=== PATIENT | female | born 1970 | race Caucasian/White ===

== ENCOUNTER 2016-04-06 07:59 | Emergency (ER) | payer BC ==
[~2016-04-06] VITALS: Ht 172.7 cm; Wt 99.9 kg
[~2016-04-06 07:59] MED LIST: ABILIFY10 MG PO; ADDERALL20 MG PO; ASPIR-LOW81 MG PO; CHANTIX1 MG PO; DAILY VITE1 EAC1 PO; DIFLUCAN100 MG PO; EFFEXOR XR150 MG PO; EFFEXOR XR75 MG PO; FEOSOL325 MG PO; LAMICTAL100 MG PO; MIRALAX255 GM PO; ONE DAILY MULT1 EACH PO; PANTOPRAZOLE SO40 MG PO; PROBIOTIC & AC1 EACH PO; PROTONIX40 MG PO; TOPAMAX50 MG PO; VITAMIN D2000 UNIT PO; VYVANSE30 MG PO; VYVANSE70 MG PO; WELLBUTRIN; WELLBUTRIN XL150 MG PO; [UNRECOGNIZED DRUG - REMARK]
[2016-04-06 08:41] LABS: ADD MIUA? YES; BILIRUBIN NEGATIVE; BLOOD MODERATE; COLOR YELLOW ((YELLOW)); GLUCOSE (STRIP) NEGATIVE; KETONES NEGATIVE; LEUKOCYTES NEGATIVE; NITRITE NEGATIVE; PH, URINE 7.5 (5-8); PROTEIN (STRIP) TRACE; SPECIFIC GRAVITY 1.019 (1.000-1.030); UROBILINOGEN 0.2 MG/DL (0.2-1.0)
[2016-04-06 08:44] LABS: BASOPHIL COUNT 0.1 K/uL (0-0.1); EOSINOPHIL (%) 2.7 % (0-5); EOSINOPHIL COUNT 0.2 K/uL (0-0.3); HEMATOCRIT 41.7 % (36.0-46.0); MCH 30.4 PG (29.0-34.0); MCHC 34.3 G/DL (30.0-36.0); MCV 88.5 FL (83-99); MEAN PLAT.VOLUME 9.2 uM^3 (9.5-12.4); MONOCYTE (%) 7.3 % (3-12); MONOCYTE COUNT 0.5 K/uL (0-0.8); PLATELET COUNT 293 K/uL (156-360); RBC DIS.WIDTH-CV 12.7 % (11.8-14.6); RED BLOOD COUNT 4.71 M/uL (3.80-5.20); WHITE BLOOD COUNT 6.7 K/uL (4.1-10.2)
[2016-04-06 08:52] LABS: CHLORIDE 106 mEq/L (99-109); POTASSIUM 4.5 mEq/L (3.7-5.4); SODIUM 137 mEq/L (136-147)
[2016-04-06 08:53] LABS: BACTERIA NONE SEEN; CASTS NONE SEEN /LPF; CRYSTALS NONE SEEN; EPITHELIAL CELLS RARE; MUCUS NONE SEEN; PATHOLOGICAL CAST NONE SEEN; RED BLOOD CELLS 40-50 /HPF (0-5); SMALL ROUND CELL NONE SEEN; UCUL ADDED? NO; WHITE BLOOD CELLS 0-5 /HPF (0-5); YEAST-LIKE CELL NONE SEEN
[2016-04-06 08:54] LABS: GLUCOSE 97 mg/dL (70-99)
[2016-04-06 08:55] LABS: ANION GAP 8 MEQ/L (2-14)
[2016-04-06 08:57] LABS: GFR ESTIMATE (CALCULATED) > 59 mL/min/
[2016-04-06 08:58] LABS: UREA NITROGEN (BUN) 17 mg/dL (9-23)
[2016-04-06] MEDS ORDERED: MOTRIN600 MG PO (09:47)
[2016-04-06] MEDS ORDERED: PERCOCET 5/31 TABLET PO (09:47)
[2016-04-06 10:28] VITALS: BP 115/74
== END 2016-04-06 10:44 | disposition home or self-care (01) ==
LOC: EME 07:59
PROVIDERS: Emergency Medicine
DX: N13.2 Hydronephrosis with renal and ureteral calculous obstruction (principal); Z87.891 Personal history of nicotine dependence
CPT/HCPCS: 74176; 80048; 81003; 85025; 99281; 99285; J1885; J3010; J7030

== ENCOUNTER 2016-04-16 10:26 | Emergency (ER) | payer BC ==
[~2016-04-16] VITALS: Ht 172.7 cm; Wt 102.0 kg
[~2016-04-16 10:26] MED LIST changes: +MOTRIN600 MG PO; +PERCOCET 5/31 TABLET PO
[2016-04-16 12:47] LABS: ADD MIUA? YES; BILIRUBIN NEGATIVE; BLOOD SMALL; COLOR YELLOW ((YELLOW)); GLUCOSE (STRIP) NEGATIVE; KETONES NEGATIVE; LEUKOCYTES NEGATIVE; NITRITE NEGATIVE; PROTEIN (STRIP) NEGATIVE; SPECIFIC GRAVITY 1.017 (1.000-1.030); UROBILINOGEN 0.2 MG/DL (0.2-1.0)
[2016-04-16 13:02] LABS: HEMATOCRIT 41.7 % (36.0-46.0); MCH 30.1 PG (29.0-34.0); MCHC 34.1 G/DL (30.0-36.0); MCV 88.3 FL (83-99); MEAN PLAT.VOLUME 9.4 uM^3 (9.5-12.4); PLATELET COUNT 279 K/uL (156-360); RBC DIS.WIDTH-CV 12.9 % (11.8-14.6); RBC DIS.WIDTH-SD 40.6 % (39-53); RED BLOOD COUNT 4.72 M/uL (3.80-5.20); WHITE BLOOD COUNT 7.2 K/uL (4.1-10.2)
[2016-04-16 13:11] LABS: CHLORIDE 106 mEq/L (99-109); POTASSIUM 4.1 mEq/L (3.7-5.4); SODIUM 138 mEq/L (136-147)
[2016-04-16 13:13] LABS: GLUCOSE 83 mg/dL (70-99)
[2016-04-16 13:15] LABS: ANION GAP 10 MEQ/L (2-14)
[2016-04-16 13:16] LABS: BACTERIA NONE SEEN; CASTS NONE SEEN /LPF; CRYSTALS NONE SEEN; EPITHELIAL CELLS RARE; MUCUS NONE SEEN; RED BLOOD CELLS NONE SEEN /HPF (0-5); UCUL ADDED? NO; WHITE BLOOD CELLS NONE SEEN /HPF (0-5)
[2016-04-16 13:17] LABS: GFR ESTIMATE (CALCULATED) > 59 mL/min/
[2016-04-16 13:18] LABS: UREA NITROGEN (BUN) 12 mg/dL (9-23)
[2016-04-16] MEDS ORDERED: NAPROSYN500 MG PO (13:45)
[2016-04-16] MEDS ORDERED: STOOL SOFTENER240 MG PO (13:48)
[2016-04-16 14:16] VITALS: BP 105/68
== END 2016-04-16 14:18 | disposition home or self-care (01) ==
LOC: EME 10:26
PROVIDERS: Nurse Practitioner Family
DX: R10.9 Unspecified abdominal pain (principal); R31.9 Hematuria, unspecified; Z98.890 Other specified postprocedural states; Z88.2 Allergy status to sulfonamides
CPT/HCPCS: 74000; 80048; 81003; 85027; 99281; 99284

== ENCOUNTER 2016-05-02 11:27 | Emergency (ER) | payer BC ==
[~2016-05-02] VITALS: Ht 172.7 cm; Wt 100.2 kg
[~2016-05-02 11:27] MED LIST changes: +NAPROSYN500 MG PO; +STOOL SOFTENER240 MG PO
[2016-05-02 12:02] LABS: EOSINOPHIL (%) 0.9 % (0-5); EOSINOPHIL COUNT 0.2 K/uL (0-0.3); HEMATOCRIT 42.4 % (36.0-46.0); IMMATURE GRANULOCYTE (%) 0.1 % (0.0-0.7); IMMATURE GRANULOCYTE COUNT 0.2 K/uL; LYMPHOCYTE COUNT 2.1 K/uL (1.0-2.8); MCV 88.3 FL (83-99); MEAN PLAT.VOLUME 9.1 uM^3 (9.5-12.4); MONOCYTE (%) 8.9 % (3-12); MONOCYTE COUNT 1.5 K/uL (0-0.8); NEUTROPHIL (%) 77.5 % (45-76); NEUTROPHIL COUNT 12.9 K/uL (1.8-6.4); PLATELET COUNT 317 K/uL (156-360); RBC DIS.WIDTH-CV 13.1 % (11.8-14.6); RBC DIS.WIDTH-SD 41.5 % (39-53); WHITE BLOOD COUNT 16.6 K/uL (4.1-10.2)
[2016-05-02 12:12] LABS: CHLORIDE 104 mEq/L (99-109); SODIUM 137 mEq/L (136-147)
[2016-05-02 12:13] LABS: GLUCOSE 110 mg/dL (70-99)
[2016-05-02 12:15] LABS: ANION GAP 8 MEQ/L (2-14)
[2016-05-02 12:17] LABS: GFR ESTIMATE (CALCULATED) > 59 mL/min/
[2016-05-02 12:18] LABS: UREA NITROGEN (BUN) 11 mg/dL (9-23)
[2016-05-02] MEDS ORDERED: FLAGYL500 MG PO (13:49)
[2016-05-02] MEDS ORDERED: CIPRO500 MG PO (13:49)
[2016-05-02 14:06] VITALS: BP 119/78
== END 2016-05-02 14:08 | disposition home or self-care (01) ==
LOC: EME 11:27
PROVIDERS: Physician Assistant
DX: K57.92 Diverticulitis of intestine, part unspecified, without perforation or abscess without bleeding (principal); Z88.2 Allergy status to sulfonamides
CPT/HCPCS: 74176; 80048; 81003; 85025; 99281; 99284; J1885

== ENCOUNTER 2016-07-11 22:52 | Inpatient (IN) | payer BC ==
[~2016-07-11] VITALS: Ht 172.7 cm; Wt 98.5 kg
[~2016-07-11 22:52] MED LIST changes: +CIPRO500 MG PO; +FLAGYL500 MG PO
[2016-07-11 23:36] LABS: HEMATOCRIT 43.4 % (36.0-46.0); MCH 29.5 PG (29.0-34.0); MCHC 32.9 G/DL (30.0-36.0); MCV 89.7 FL (83-99); PLATELET COUNT 322 K/uL (156-360); RBC DIS.WIDTH-CV 13.7 % (11.8-14.6); RBC DIS.WIDTH-SD 45.4 % (39-53); RED BLOOD COUNT 4.84 M/uL (3.80-5.20); WHITE BLOOD COUNT 11.7 K/uL (4.1-10.2)
[2016-07-11 23:47] LABS: CHLORIDE 112 mEq/L (99-109); POTASSIUM 4.3 mEq/L (3.7-5.4); SODIUM 141 mEq/L (136-147)
[2016-07-11 23:50] LABS: GLUCOSE 122 mg/dL (70-99)
[2016-07-11 23:51] LABS: ANION GAP 8 MEQ/L (2-14)
[2016-07-11 23:52] LABS: TOTAL BILIRUBIN 0.4 mg/dL (0.0-1.0)
[2016-07-11 23:53] LABS: ALKALINE PHOSPHATASE 85 IU/L (3-129); GFR ESTIMATE (CALCULATED) > 59 mL/min/
[2016-07-11 23:54] LABS: UREA NITROGEN (BUN) 10 mg/dL (9-23)
[2016-07-12] MEDS ORDERED: STOOL SOFTENER240 MG PO (01:12)
[2016-07-12] MEDS ORDERED: MIDRIN1 CAPSULE PO (01:13)
[2016-07-12] MEDS ORDERED: DAILY VALUE1 EACH PO (01:14)
[2016-07-12] MEDS ORDERED: MIRALAX255 GM PO (01:14)
[2016-07-12] MEDS ORDERED: CALCIUM 600 +1 EA16 PO (01:15)
[2016-07-12 02:00] VITALS: BP 130/65
[2016-07-12 07:33] VITALS: BP 118/75
[2016-07-12 16:03] VITALS: BP 122/60
[2016-07-12 22:40] VITALS: BP 107/61
[2016-07-13 07:35] VITALS: BP 132/74
== END 2016-07-13 12:20 | disposition home or self-care (01) | DRG 390 ==
LOC: EME → EDBD 22:52 → EME 22:52 → 5EAST 23:30 → EDOF 23:30 → 5EAST 07-12 01:48
PROVIDERS: Emergency Medicine
DX: K56.60 Unspecified intestinal obstruction (principal); K21.9 Gastro-esophageal reflux disease without esophagitis; F31.9 Bipolar disorder, unspecified; G43.909 Migraine, unspecified, not intractable, without status migrainosus; Z87.891 Personal history of nicotine dependence; Z88.2 Allergy status to sulfonamides
CPT/HCPCS: 71010; 74020; 74022; 80053; 83605; 85027; 94640; J1650; J2270; J2405; J7030; J7040

== ENCOUNTER 2016-12-26 22:56 | Observation (INO) | payer BC ==
[~2016-12-26] VITALS: Ht 172.7 cm; Wt 102.7 kg
[~2016-12-26 22:56] MED LIST changes: -ABILIFY10 MG PO; +ABILIFY20 MG PO; +CALCIUM 600 +1 EA16 PO; +DAILY VALUE1 EACH PO; +MIDRIN1 CAPSULE PO
[2016-12-26] MEDS ORDERED: DOXYCYCLINE MON50 MG PO (23:44)
[2016-12-26] MEDS ORDERED: PNEUMOVAX 230.5 ML IM (23:44)
[2016-12-26] MEDS ORDERED: TRULANCE3 MG PO (23:44)
[2016-12-26] MEDS ORDERED: FLUARIX QU60 MCG/0.4 IM (23:45)
[2016-12-26] MEDS ORDERED: ADVIL,NUPRIN,M200 MG PO (23:45)
[2016-12-26] MEDS ORDERED: CLINDAMYCIN PHO60 M1 TP (23:45)
[2016-12-27 01:35] VITALS: BP 103/54
[2016-12-27 06:02] LABS: HEMATOCRIT 40.2 % (36.0-46.0); MCH 28.5 PG (29.0-34.0); MCHC 31.3 G/DL (30.0-36.0); PLATELET COUNT 263 K/uL (156-360); RBC DIS.WIDTH-SD 46.6 % (39-53); RED BLOOD COUNT 4.42 M/uL (3.80-5.20); WHITE BLOOD COUNT 5.9 K/uL (4.1-10.2)
[2016-12-27 06:28] LABS: ALKALINE PHOSPHATASE 79 IU/L (3-129); ANION GAP 6 MEQ/L (2-14); CHLORIDE 109 MEQ/L (99-109); GFR ESTIMATE (CALCULATED) > 59 mL/min/; GLUCOSE 108 mg/dL (70-99); POTASSIUM 4.7 MEQ/L (3.7-5.4); SAMPLE HEMOLYSIS CHECK 2; SAMPLE ICTERIC CHECK 0; SAMPLE LIPEMIA CHECK 0; SODIUM 141 MEQ/L (136-147); TOTAL BILIRUBIN 0.6 MG/DL (0.0-1.0); UREA NITROGEN (BUN) 11 mg/dL (9-23)
[2016-12-27 12:23] VITALS: BP 119/68
[2016-12-27 16:19] VITALS: BP 95/52
[2016-12-27 19:00] VITALS: BP 111/59
[2016-12-28] VITALS: BP 115/59
[2016-12-28 04:02] VITALS: BP 106/61
[2016-12-28 05:24] LABS: EOSINOPHIL (%) 2.3 % (0-5); EOSINOPHIL COUNT 0.2 K/uL (0-0.3); HEMATOCRIT 37.4 % (36.0-46.0); IMMATURE GRANULOCYTE (%) 0.2 % (0.0-0.7); LYMPHOCYTE COUNT 1.5 K/uL (1.0-2.8); MCH 28.8 PG (29.0-34.0); MCHC 31.6 G/DL (30.0-36.0); MCV 91.2 FL (83-99); MEAN PLAT.VOLUME 9.1 uM^3 (9.5-12.4); MONOCYTE (%) 5.4 % (3-12); MONOCYTE COUNT 0.4 K/uL (0-0.8); NEUTROPHIL (%) 73.9 % (45-76); PLATELET COUNT 253 K/uL (156-360); RBC DIS.WIDTH-CV 14.1 % (11.8-14.6); RBC DIS.WIDTH-SD 47.3 % (39-53); WHITE BLOOD COUNT 8.2 K/uL (4.1-10.2)
[2016-12-28 06:13] LABS: ALKALINE PHOSPHATASE 84 IU/L (3-129); ANION GAP 6 MEQ/L (2-14); CHLORIDE 109 MEQ/L (99-109); GFR ESTIMATE (CALCULATED) > 59 mL/min/; GLUCOSE 127 mg/dL (70-99); SAMPLE HEMOLYSIS CHECK 0; SAMPLE ICTERIC CHECK 0; SAMPLE LIPEMIA CHECK 0; SODIUM 143 MEQ/L (136-147); UREA NITROGEN (BUN) 8 mg/dL (9-23)
[2016-12-28 06:14] LABS: TOTAL BILIRUBIN 0.4 MG/DL (0.0-1.0)
[2016-12-28 07:10] VITALS: BP 133/62
[2016-12-28 12:00] VITALS: BP 114/65
[2016-12-28 16:25] VITALS: BP 124/58
== END 2016-12-28 16:57 | disposition home or self-care (01) ==
LOC: EME → EDBD 22:56 → 5WEST 23:45 → EDOF 23:45 → ENRESERV 23:50 → 5WEST 12-27 01:25
PROVIDERS: Hospitalist; Physician Assistant
DX: R10.84 Generalized abdominal pain (principal); F31.9 Bipolar disorder, unspecified; R11.2 Nausea with vomiting, unspecified; D72.829 Elevated white blood cell count, unspecified; R74.0 Nonspecific elevation of levels of transaminase and lactic acid dehydrogenase [LDH]; K76.0 Fatty (change of) liver, not elsewhere classified; K44.9 Diaphragmatic hernia without obstruction or gangrene; K80.20 Calculus of gallbladder without cholecystitis without obstruction; K21.9 Gastro-esophageal reflux disease without esophagitis; Z87.19 Personal history of other diseases of the digestive system; K22.70 Barrett's esophagus without dysplasia; Z87.442 Personal history of urinary calculi; Z80.0 Family history of malignant neoplasm of digestive organs; Z80.1 Family history of malignant neoplasm of trachea, bronchus and lung; Z87.891 Personal history of nicotine dependence; Z88.2 Allergy status to sulfonamides; Z88.8 Allergy status to other drugs, medicaments and biological substances
CPT/HCPCS: 74022; 76705; 80053; 81003; 83690; 84484; 85025; 85027; 93005; 99281; 99285; G0378; J2270; J7030; J7042

== ENCOUNTER 2017-08-27 11:55 | Emergency (ER) | payer BC ==
[~2017-08-27] VITALS: Ht 172.7 cm; Wt 101.5 kg
[~2017-08-27 11:55] MED LIST changes: +ADVIL,NUPRIN,M200 MG PO; +CLINDAMYCIN PHO60 M1 TP; +DOXYCYCLINE MON50 MG PO; +FLUARIX QU60 MCG/0.4 IM; +PNEUMOVAX 230.5 ML IM; +TRULANCE3 MG PO
[2017-08-27 12:37] LABS: HEMOGLOBIN 13.1 G/DL (11.9-15.5); MCH 28.5 PG (29.0-34.0); MCHC 32.8 G/DL (30.0-36.0); MCV 87.1 FL (83-99); PLATELET COUNT 315 K/uL (156-360); RBC DIS.WIDTH-CV 14.4 % (11.8-14.6); RBC DIS.WIDTH-SD 45.9 % (39-53); RED BLOOD COUNT 4.59 M/uL (3.80-5.20); WHITE BLOOD COUNT 9.9 K/uL (4.1-10.2)
[2017-08-27 12:49] LABS: CHLORIDE 106 mEq/L (99-109); POTASSIUM 4.2 mEq/L (3.7-5.4); SODIUM 140 mEq/L (136-147)
[2017-08-27 12:51] LABS: GLUCOSE 93 mg/dL (70-99); TOTAL PROTEIN 6.5 g/dL (6.4-8.3)
[2017-08-27 12:52] LABS: BILIRUBIN NEGATIVE; BLOOD NEGATIVE; COLOR YELLOW ((YELLOW)); GLUCOSE (STRIP) NEGATIVE; KETONES NEGATIVE; LEUKOCYTES NEGATIVE; NITRITE NEGATIVE; PROTEIN (STRIP) 30; UROBILINOGEN 0.2 MG/DL (0.2-1.0)
[2017-08-27 12:53] LABS: TOTAL BILIRUBIN 0.5 mg/dL (0.0-1.0)
[2017-08-27 12:53] LABS: APPEARANCE CLEAR ((CLEAR)); UCUL ADDED? NO
[2017-08-27 12:54] LABS: ALKALINE PHOSPHATASE 129 IU/L (3-129)
[2017-08-27 12:55] LABS: CREATININE 0.9 mg/dL (0.6-1.3); GFR ESTIMATE (CALCULATED) > 59 mL/min/
[2017-08-27 12:56] LABS: AST (GOT) 14 IU/L (2-34); UREA NITROGEN (BUN) 14 mg/dL (9-23)
[2017-08-27 12:58] LABS: ALT (GPT) 26 IU/L (3-49)
[2017-08-27] MEDS ORDERED: FLAGYL500 MG PO (14:07)
[2017-08-27] MEDS ORDERED: CIPRO500 MG PO (14:07)
[2017-08-27 14:23] VITALS: BP 130/68
== END 2017-08-27 14:25 | disposition home or self-care (01) ==
LOC: EME 11:55
DX: K57.92 Diverticulitis of intestine, part unspecified, without perforation or abscess without bleeding (principal); K21.9 Gastro-esophageal reflux disease without esophagitis; K22.70 Barrett's esophagus without dysplasia; F31.9 Bipolar disorder, unspecified; Z87.442 Personal history of urinary calculi; Z87.891 Personal history of nicotine dependence; Z88.2 Allergy status to sulfonamides; Z88.8 Allergy status to other drugs, medicaments and biological substances
CPT/HCPCS: 74177; 80053; 81003; 85027; 99281; 99284; J1885; J7040